=== PATIENT | male | born 1960 | race American Indian/Alaskan Native ===

== ENCOUNTER 2019-02-13 08:42 | Emergency (ER) | payer SELFPAY ==
--- NOTE | 2019-02-13 10:13 | Emergency Department Report ---
ED General Adult HPI - General Chief complaint: Allergic Reaction Stated complaint: RIGHT SIDE FACE SWELLING Time Seen by Provider: 02/13/19 09:45 Source: patient Mode of arrival: Ambulatory Limitations: No Limitations - History of Present Illness Initial comments: Patient presents to emergency department with facial swelling after eating fish last night. Patient states he ate [place] for the first time last night and immediately had swelling of his face. At that time he took 2 Benadryl's and woke up this morning and molasses swelling was improved but was still present. Patient denies having any difficulty breathing or swallowing currently -: Sudden Location: mouth Radiation: non-radiation Severity scale (0 -10): 0 Improves with: other (benadryl) Worsens with: none Treatments Prior to Arrival: other (benadryl) - Related Data Previous Rx's Medication Instructions Recorded Last Taken Type hydroCHLOROthiazide 12.5 mg PO DAILY #14 tablet 09/25/18 Unknown Rx [Hydrochlorothiazide] Prednisone [predniSONE 10 mg 10 mg PO .TAPER #1 tab.ds.pk 02/13/19 Unknown Rx (6-Day Pack, 21 Tabs)] Allergies Allergy/AdvReac Type Severity Reaction Status Date / Time No Known Allergies Allergy Unverified 09/25/18 16:50 ED Review of Systems ROS: Stated complaint: RIGHT SIDE FACE SWELLING Other details as noted in HPI Comment: All other systems reviewed and negative Constitutional: denies: chills, fever Eyes: denies: eye pain, eye discharge, vision change ENT: denies: ear pain, throat pain Respiratory: denies: cough, shortness of breath, wheezing Cardiovascular: denies: chest pain, palpitations Endocrine: no symptoms reported Gastrointestinal: denies: abdominal pain, nausea, diarrhea Genitourinary: denies: urgency, dysuria Musculoskeletal: denies: back pain, joint swelling, arthralgia Skin: denies: rash, lesions Neurological: denies: headache, weakness, paresthesias Psychiatric: denies: anxiety, depression Hematological/Lymphatic: denies: easy bleeding, easy bruising ED Past Medical Hx - Past Medical History Previous Medical History?: No - Surgical History Past Surgical History?: No - Social History Smoking Status: Current Every Day Smoker Substance Use Type: Alcohol - Medications Home Medications: Home Medications Medication Instructions Recorded Confirmed Last Taken Type hydroCHLOROthiazide 12.5 mg PO DAILY #14 tablet 09/25/18 Unknown Rx [Hydrochlorothiazide] Prednisone [predniSONE 10 mg 10 mg PO .TAPER #1 tab.ds.pk 02/13/19 Unknown Rx (6-Day Pack, 21 Tabs)] ED Physical Exam - General Limitations: No Limitations General appearance: alert, in no apparent distress - Head Head exam: Present: atraumatic, normocephalic, other (swelling to the right side of the face) - Eye Eye exam: Present: normal appearance, PERRL, EOMI - ENT ENT exam: Present: mucous membranes moist - Neck Neck exam: Present: normal inspection - Respiratory Respiratory exam: Present: normal lung sounds bilaterally. Absent: respiratory distress, wheezes, rales - Cardiovascular Cardiovascular Exam: Present: regular rate, normal rhythm. Absent: systolic murmur, diastolic murmur, rubs, gallop - GI/Abdominal GI/Abdominal exam: Present: soft, normal bowel sounds. Absent: distended, tenderness - Rectal Rectal exam: Present: deferred - Extremities Exam Extremities exam: Present: normal inspection - Back Exam Back exam: Present: normal inspection - Neurological Exam Neurological exam: Present: alert, oriented X3, CN II-XII intact. Absent: motor sensory deficit - Psychiatric Psychiatric exam: Present: normal affect, normal mood - Skin Skin exam: Present: warm, dry, intact, normal color. Absent: rash ED Course Vital Signs 02/13/19 08:48 Temperature 99.0 F Pulse Rate 88 Respiratory 18 Rate Blood Pressure 154/86 [Right] O2 Sat by Pulse 95 Oximetry ED Medical Decision Making - Medical Decision Making Discussed plan of care with patient and the need to avoid fish until allergy testing has been performed Critical care attestation.: If time is entered above; I have spent that time in minutes in the direct care of this critically ill patient, excluding procedure time. ED Disposition Clinical Impression: Allergic reaction Disposition: DC-01 TO HOME OR SELFCARE Is pt being admited?: No Does the pt Need Aspirin: No Condition: Stable Instructions: Food Allergy (ED) Additional Instructions: return if worse Prescriptions: Prednisone [predniSONE 10 mg (6-Day Pack, 21 Tabs)] 10 mg PO .TAPER #1 tab.ds.pk Referrals: [facility], [Provider Group] - 3-[address] [facility] [Provider Group] - 3-5 Days [facility] [place] [Outside] - 3-[address] [facility] [Provider Group] - 3-5 Days Time of Disposition: 10:11
[2019-02-13 10:43] VITALS: BP 151/84
== END 2019-02-13 10:34 | disposition home or self-care (01) ==
LOC: ED 08:42
DX: T78.40XA Allergy, unspecified, initial encounter (principal); F17.200 Nicotine dependence, unspecified, uncomplicated; X58.XXXA Exposure to other specified factors, initial encounter
CPT/HCPCS: 99282